=== PATIENT | female | born 1995 | race Caucasian/White ===

== ENCOUNTER 2016-05-28 18:13 | Emergency (ER) | payer BC, OTHER ==
[~2016-05-28] VITALS: Ht 160 cm; Wt 59.6 kg
[~2016-05-28 18:13] MED LIST: BCPILLS PO; IBUP-1050 PO
[2016-05-28 18:17] VITALS: TEMP 36.9; Ht 160 cm; Wt 59.6 kg
[2016-05-28] MEDS ORDERED: CALC500C3 PO (18:34)
[2016-05-28] MEDS ORDERED: MoRPHine SULFATE 4 MG/ML 1 ML CARP\\VIAL IV STA (18:47)
[2016-05-28] MEDS ORDERED: KETOROLAC TROMETHAMINE 30 MG/ML VIAL IV STA (18:47)
[2016-05-28] MEDS ORDERED: SODIUM CHLORIDE 0.9% 500ML 500 ML IV STA (18:47)
[2016-05-28 19:07] LABS: BASO % 0.2 %; BASO ABS # 0.02 K/uL (0-0.2); COMPLETE YES; EOS % 0.5 %; HEMATOCRIT 39.3 % (37-47); IG% 0.2 %; LYMPH % 38.1 %; MEAN CELL VOLUME 88.3 fL (80-100); MEAN CORPUSCULAR HEMOGLOBIN 31.2 pg (25-34); MEAN CORPUSCULAR HGB CONC 35.4 g/dl (32-36); MEAN PLATELET VOLUME 8.9 fL (7.4-10.4); PLATELET COUNT 371 K/uL (130-400); RED BLOOD COUNT 4.45 M/uL (4.2-5.4); WHITE BLOOD COUNT 8.67 K/uL (4.8-10.8)
[2016-05-28 19:22] LABS: BUN/CREATININE RATIO 8.8 (10-20); CALCIUM 9.5 mg/dl (8.5-10.1); CREATININE 0.75 mg/dl (0.60-1.20); POTASSIUM 3.5 mmol/L (3.5-5.1)
--- NOTE | 2016-05-28 19:36 | DIAGNOSTIC IMAGING REPORT ---
RIGHT RIBS UNILATERAL WITH PA CHEST CLINICAL HISTORY: Right rib pain. Coughing. COMPARISON STUDY: No previous studies for comparison. FINDINGS: The erect chest reveals no pneumothorax. There is no focal pulmonary consolidation. Multiple views of the right ribs reveal no acute fractures. IMPRESSION: No evidence of pneumothorax. No right-sided rib fractures are visualized. Electronically signed by: Brayan Anaya M.D. 05/28/2016 7:34 PM Dictated Date/Time: 05/28/2016 7:33 PM
[2016-05-28 21:00] VITALS: BP 130/92; PULSE 79; O2SAT 98
--- NOTE | 2016-05-28 22:59 | EMERGENCY ROOM VISIT NOTE ---
History Report prepared by Michelle: Roland Erickson Under the Supervision of: Dr. Dre Funes D.O. First contact with patient: 18:40 Chief Complaint: RIB PAIN Stated Complaint: PAIN IN RT RIBS & BACK History of Present Illness The patient is a 20 year old female who presents to the Emergency Room with complaints of persistent right rib pain that worsened after she sneezed 45 minutes ago. The patient notes that she has had a lingering pain for the past four days, but she presented to ED this evening after she sneezed because the pain became excruciating and she thought she felt something move or snap. She describes the discomfort as stabbing. Holding pressure relieves the pain somewhat. Breathing worsens the discomfort. Pt denies headache, change in vision , fevers, nausea, vomiting, diarrhea, pain with urination, melena, runny nose, sore throat, swelling of calves, abdominal pain, and rash. She also denies history of blood clots, recent travel, history of cancer, hemoptysis, recent surgeries, previous blood clots, falls or trauma. She denies any hypertension, hyperlipidemia, CAD or [place]. Source of History: patient Onset: 4 days ago Position: other (right ribs) Symptom Intensity: excruciating Quality: sharp, stabbing Timing: other (persistent) Modifying Factors (Worsening): breathing Modifying Factors (Relieving): other (holding pressure) Associated Symptoms: No abdominal pain, No diarrhea, No fevers, No headache , No melena, No nausea, No rash, No vomiting Note: Denies: change in vision, runny nose, sore throat, swelling of calves Review of Systems See HPI for pertinent positives & negatives. A total of 10 systems reviewed and were otherwise negative. Past Medical & Surgical Medical Problems: (1) Bronchitis (2) Contusion of rib (3) Contusion, arm, upper (4) No significant medical problems (5) Pneumonia Surgical Problems: (1) No significant past surgical history Family History Cancer Diabetes mellitus FHx: gallbladder disease Heart disease Hypertension Kidney disease Kidney stones Seizures Social History Smoking Status: Never Smoker Alcohol Use: none Drug Use: none Marital Status: single Housing Status: lives with family Occupation Status: employed, student Current/Historical Medications Scheduled Control Pills ( Control Pills), 1 TAB PO DAILY Calcium Carbonate (Tums), 3 TABS PO DIRECTED Ibuprofen (Advil), 400-600 MG PO Q6H Allergies Coded Allergies: No Known Allergies (Unverified , 05/28/16) Physical Exam Vital Signs Date Time Temp Pulse Resp B/P Pulse Ox O2 Delivery O2 Flow Rate FiO2 05/28/16 21:00 79 18 130/92 98 05/28/16 20:01 95 18 124/84 98 Room Air 05/28/16 18:17 36.9 110 20 153/94 97 Room Air Physical Exam GENERAL: sitting up in bed, holding her right chest wall EYE EXAM: normal conjunctiva, OROPHARYNX: no exudate, no erythema, lips, buccal mucosa, and tongue normal and mucous membranes are moist NECK: supple, no nuchal rigidity, no adenopathy, non-tender LUNGS: Clear to auscultation. Normal chest wall mechanics HEART: no murmurs, S1 normal and S2 normal.. tachycardic CHEST: acute reproducible tenderness under right breast, no erythema or bruising , skin intact. ABDOMEN: abdomen soft, non-tender, normo-active bowel sounds, no masses, no rebound or guarding. BACK: Back is symmetrical on inspection and there is no deformity, no midline tenderness, no CVA tenderness. SKIN: no rashes and no bruising UPPER EXTREMITIES: upper extremities are grossly normal. LOWER EXTREMITIES: No pitting edema. NEURO EXAM: Normal sensorium, cranial nerves II-XII grossly intact, normal speech, no gross weakness of arms, no gross weakness of legs. Gross sensation intact. Medical Decision & Procedures ER Provider Diagnostic Interpretation: Xray results per the radiologist and my interpretation. Other results have been interpreted by the radiologist and reviewed by me. RIGHT RIBS UNILATERAL WITH PA CHEST CLINICAL HISTORY: Right rib pain. Coughing. COMPARISON STUDY: No previous studies for comparison. FINDINGS: The erect chest reveals no pneumothorax. There is no focal pulmonary consolidation. Multiple views of the right ribs reveal no acute fractures. IMPRESSION: No evidence of pneumothorax. No right-sided rib fractures are visualized. Electronically signed by: Brayan Anaya M.D. 05/28/2016 7:34 PM Dictated Date/Time: 05/28/2016 7:33 PM Laboratory Results 05/28/16 18:55 Red Blood Count 4.45, Mean Corpuscular Volume 88.3, Mean Corpuscular Hemoglobin 31.2, Mean Corpuscular Hemoglobin Concent 35.4, Mean Platelet Volume 8.9, Neutrophils (%) (Auto) 50.0, Lymphocytes (%) (Auto) 38.1, Monocytes (%) (Auto) 11.0, Eosinophils (%) (Auto) 0.5, Basophils (%) (Auto) 0.2, Neutrophils # (Auto ) 4.34, Lymphocytes # (Auto) 3.30, Monocytes # (Auto) 0.95, Eosinophils # (Auto ) 0.04, Basophils # (Auto) 0.02 05/28/16 18:55 Test 05/28/16 18:55 White Blood Count 8.67 K/uL (4.8-10.8) Red Blood Count 4.45 M/uL (4.2-5.4) Hemoglobin 13.9 g/dL (12.0-16.0) Hematocrit 39.3 % (37-47) Mean Corpuscular Volume 88.3 fL (80-100) Mean Corpuscular Hemoglobin 31.2 pg (25-34) Mean Corpuscular Hemoglobin Concent 35.4 g/dl (32-36) Platelet Count 371 K/uL (130-400) Mean Platelet Volume 8.9 fL (7.4-10.4) Neutrophils (%) (Auto) 50.0 % Lymphocytes (%) (Auto) 38.1 % Monocytes (%) (Auto) 11.0 % Eosinophils (%) (Auto) 0.5 % Basophils (%) (Auto) 0.2 % Neutrophils # (Auto) 4.34 K/uL (1.4-6.5) Lymphocytes # (Auto) 3.30 K/uL (1.2-3.4) Monocytes # (Auto) 0.95 K/uL (0.11-0.59) Eosinophils # (Auto) 0.04 K/uL (0-0.5) Basophils # (Auto) 0.02 K/uL (0-0.2) RDW Standard Deviation 41.9 fL (36.4-46.3) RDW Coefficient of Variation 12.9 % (11.5-14.5) Immature Granulocyte % (Auto) 0.2 % Immature Granulocyte # (Auto) 0.02 K/uL (0.00-0.02) D-Dimer 330 ug/L FEU (0-500) Anion Gap 11.0 mmol/L (3-11) Est Creatinine Clear Calc Drug Dose 99.8 ml/min Estimated GFR () 133.9 Estimated GFR (Non- 115.6 BUN/Creatinine Ratio 8.8 (10-20) Calcium Level 9.5 mg/dl (8.5-10.1) Laboratory results per my review. Medications Administered Medications (Trade) Dose Ordered Sig/Kar Route Start Time Stop Time Status Last Admin Dose Admin Sodium Chloride (Nss 500ml) 500 ml @ 999 mls/hr Q31M STAT IV 05/28/16 18:47 05/28/16 19:17 DC 05/28/16 19:00 999 MLS/HR Ketorolac Tromethamine (Toradol Inj) 30 mg NOW STAT IV 05/28/16 18:47 05/28/16 18:49 DC 05/28/16 19:00 30 MG Morphine Sulfate (MoRPHine SULFATE INJ) 4 mg NOW STAT IV 05/28/16 18:47 05/28/16 18:49 DC 05/28/16 18:59 4 MG ED Course ED COURSE: Vital signs were reviewed and showed tachycardic. The patients medical record was reviewed The above diagnostic studies were performed and reviewed. ED treatments and interventions as stated above. 1837: The patient was evaluated in room C9. A complete history and physical examination was performed. 1846: Ordered Morphine Sulfate 4 mg IV, Toradol 30 mg IV, NSS 500 ml @ 999 mls/ hr IV. 1941: Upon reevaluation, the patient is resting.I discussed my findings with the patient and she understands and agrees with the treatment plan. Based on the patients age, coexisting illnesses, exam and lab findings the decision to treat as an outpatient was made. The patient remained stable while under my care. The patient appeared well at the time of discharge. Medical Decision Differential diagnoses includes but is not limited to acute coronary syndrome, myocardial infarction, pericarditis, pulmonary embolus, aortic dissection, pneumonia, pneumothorax, musculoskeletal, shingles, esophageal. Patient is a 20-year-old female who presents the ER severe right-sided chest pain which is clearly reproducible on exam. She has point tenderness under her right breast. No signs of trauma or erythema. Patient is given IV Toradol morphine. Chest x-ray shows no rib fractures. CBC along with BMP was unremarkable. D-dimer was negative. She is a low risk for PEs. She is no cardiac risk factors. This is clearly reproducible and consequently I do not believe it to be cardiac. With her negative d-dimer I did not pursue this any further. Pain is improved with splinting and consequently I question whether this is a hairline rib fracture/contusion/muscle sprain. Discussed with Pt concerning signs and symptoms to watch out for. Pt was instructed to follow up with their PCP and discussed with the patient their option to return to the ED at anytime for persistent or worsening symptoms. The appropriate anticipatory guidance and out-patient management, including indications for return to the emergency department, were explained at length to the patient and understood. Impression Primary Impression: Right-sided chest wall pain Scribe Attestation The scribe's documentation has been prepared under my direction and personally reviewed by me in its entirety. I confirm that the note above accurately reflects all work, treatment, procedures, and medical decision making performed by me. Departure Information Dispostion Home / Self-Care Referrals No Doctor, Assigned (PCP) Forms HOME CARE DOCUMENTATION FORM, IMPORTANT VISIT INFORMATION, WORK / SCHOOL INSTRUCTIONS Patient Instructions My [facility] Additional Instructions Please follow up with your primary care doctor with in the next 24 hours. Any worsening of your symptoms, please return to the ED immediately. This includes any fevers greater than 100.4, worsening pain, passing out, feel blood, or any other concerning signs or symptoms from your standpoint. Please take Tylenol or Motrin as needed for pain.
== END 2016-05-28 21:00 | disposition home or self-care (01) ==
LOC: C.EDB 18:14 → C.EDC 21:00
DX: R07.89 Other chest pain (principal); Z83.3 Family history of diabetes mellitus; Z82.49 Family history of ischemic heart disease and other diseases of the circulatory system; Z84.1 Family history of disorders of kidney and ureter

== ENCOUNTER 2017-04-01 17:27 | Emergency (ER) | payer BC, OTHER ==
[~2017-04-01] VITALS: Ht 157.5 cm; Wt 62.3 kg
[~2017-04-01 17:27] MED LIST changes: +CALC500C3 PO
[2017-04-01 17:28] VITALS: TEMP 36.9; Ht 157.5 cm; Wt 62.3 kg
[2017-04-01] MEDS ORDERED: ACETAMINOPHEN 325 MG TAB PO STA (17:44)
[2017-04-01] MEDS ORDERED: LACTATED RINGER'S 1000ML 1,000 ML IV STA (17:44)
--- NOTE | 2017-04-01 17:48 | EMERGENCY ROOM VISIT NOTE ---
History Report prepared by Michelle: Aleah Canchola Under the Supervision of: Dr. Timur Hicks M.D. First contact with patient: 17:34 Chief Complaint: PELVIC PAIN Stated Complaint: PELVIC PAIN, BACK/NECK PAIN History of Present Illness The patient is a 21 year old female who presents to the Emergency Room with complaints of intermittent pelvic pain beginning this morning. The patient notes lower back pain, neck pain, and hot and cold flashes. The patient states that she took a test 2 days ago. The patient notes some clear vaginal discharge which is not normal for her. She denies any fever, or urinary burning. The patient states she is a little sick right now with a cough and congestion. She states that if she did not have a positive test she probably wouldn't of come into the ED. The patient is not on control. The patient's last period was on February 28 and she states she is six days late for her period. The patient has a history of ovarian cysts. Source of History: patient Onset: this morning Position: pelvis Timing: intermittent Associated Symptoms: + cough, + neck pain, + back pain, No fevers, No urinary symptoms Note: The patient notes clear vaginal discharge. Review of Systems See HPI for pertinent positives and negatives. A total of ten systems were reviewed and were otherwise negative. Past Medical & Surgical Medical Problems: (1) Bronchitis (2) Contusion of rib (3) Contusion, arm, upper (4) No significant medical problems (5) Pneumonia Surgical Problems: (1) No significant past surgical history Family History Cancer Diabetes mellitus FHx: gallbladder disease Heart disease Hypertension Kidney disease Kidney stones Seizures Social History Smoking Status: Never Smoker Alcohol Use: none Drug Use: none Marital Status: single Housing Status: lives with family Occupation Status: employed, student Current/Historical Medications No Active Prescriptions or Reported Meds Allergies Coded Allergies: No Known Allergies (Unverified , 05/28/16) Physical Exam Vital Signs Date Time Temp Pulse Resp B/P (MAP) Pulse Ox O2 Delivery O2 Flow Rate FiO2 04/01/17 21:53 78 20 111/78 98 04/01/17 20:12 101 18 113/63 98 Room Air 04/01/17 17:28 36.9 108 20 122/86 97 Room Air Physical Exam GENERAL: Awake, alert, well-appearing, in no distress HENT: Normocephalic, atraumatic. Oropharynx unremarkable. EYES: Normal conjunctiva. Sclera non-icteric. NECK: Supple. No nuchal rigidity. FROM. No JVD. RESPIRATORY: Clear to auscultation. CARDIAC: Regular rate, normal rhythm. Extremities warm and well perfused. Pulses equal. ABDOMEN: Mild left lower quadrant tenderness, no peritoneal signs. Soft, non- distended. No rebound or guarding. No masses. RECTAL: Deferred. MUSCULOSKELETAL: Chest examination reveals no tenderness. The back is symmetrical on inspection without obvious abnormality. There is no CVA tenderness to palpation. No joint edema. LOWER EXTREMITIES: Calves are equal size bilaterally and non-tender. No edema. No discoloration. NEURO: Normal sensorium. No sensory or motor deficits noted. SKIN: No rash or jaundice noted. Medical Decision & Procedures ER Provider Diagnostic Interpretation: Radiology results as stated below per my review and radiologist interpretation: ultrasound <14 WKS SINGLE COMPARISON STUDY: Abdomen and pelvis CT 01/17/2016. Pelvic ultrasound 01/16/2016. FINDINGS: Transabdominal and transvaginal scanning of the pelvis was performed. The uterus measures 8.6 x 5.8 x 4.5 cm. The endometrium slightly heterogeneous and measures up to 1.2 cm in thickness. Within the center of the endometrial fundus there is a 9 x 3 mm cystic focus. This favors a small gestational sac. There may be a tiny yolk sac which measures 2 mm. No pole identified at this time. These findings favor a 5 week intrauterine gestation. No significant subchorionic hematoma. Trace pelvic fluid. Thick-walled complex cyst within the right ovary which measures 2.5 cm. This favors a corpus luteum. Normal left ovary. Normal color flow within the bilateral ovaries. IMPRESSION: 1. A 9 x 3 mm cystic focus within the endometrium which favors a small intrauterine gestational sac. There may be a tiny yolk sac which measures 2 mm. No pole identified at this time. This favors a 5 week intrauterine gestation. Follow-up beta-hCG and pelvic ultrasound in 1 week is recommended to ensure viability. 2. Complex 2.5 cm right ovarian cyst. This favors a corpus luteum. 3. Normal left ovary. Electronically signed by: Carlos Dunn M.D. Laboratory Results 04/01/17 17:48 Red Blood Count 4.67, Mean Corpuscular Volume 88.9, Mean Corpuscular Hemoglobin 30.4, Mean Corpuscular Hemoglobin Concent 34.2, Mean Platelet Volume 9.1, Neutrophils (%) (Auto) 67.6, Lymphocytes (%) (Auto) 23.3, Monocytes (%) (Auto) 8.1, Eosinophils (%) (Auto) 0.5, Basophils (%) (Auto) 0.2, Neutrophils # (Auto) 8.81, Lymphocytes # (Auto) 3.03, Monocytes # (Auto) 1.06, Eosinophils # (Auto) 0.06, Basophils # (Auto) 0.03 04/01/17 17:48 Test 04/01/17 17:48 04/01/17 17:50 White Blood Count 13.03 K/uL (4.8-10.8) Red Blood Count 4.67 M/uL (4.2-5.4) Hemoglobin 14.2 g/dL (12.0-16.0) Hematocrit 41.5 % (37-47) Mean Corpuscular Volume 88.9 fL (80-100) Mean Corpuscular Hemoglobin 30.4 pg (25-34) Mean Corpuscular Hemoglobin Concent 34.2 g/dl (32-36) Platelet Count 362 K/uL (130-400) Mean Platelet Volume 9.1 fL (7.4-10.4) Neutrophils (%) (Auto) 67.6 % Lymphocytes (%) (Auto) 23.3 % Monocytes (%) (Auto) 8.1 % Eosinophils (%) (Auto) 0.5 % Basophils (%) (Auto) 0.2 % Neutrophils # (Auto) 8.81 K/uL (1.4-6.5) Lymphocytes # (Auto) 3.03 K/uL (1.2-3.4) Monocytes # (Auto) 1.06 K/uL (0.11-0.59) Eosinophils # (Auto) 0.06 K/uL (0-0.5) Basophils # (Auto) 0.03 K/uL (0-0.2) RDW Standard Deviation 41.7 fL (36.4-46.3) RDW Coefficient of Variation 12.9 % (11.5-14.5) Immature Granulocyte % (Auto) 0.3 % Immature Granulocyte # (Auto) 0.04 K/uL (0.00-0.02) Anion Gap 10.0 mmol/L (3-11) Est Creatinine Clear Calc Drug Dose 109.7 ml/min Estimated GFR () 142.1 Estimated GFR (Non- 122.6 BUN/Creatinine Ratio 11.3 (10-20) Calcium Level 9.2 mg/dl (8.5-10.1) Total Bilirubin 0.4 mg/dl (0.2-1) Direct Bilirubin < 0.1 mg/dl (0-0.2) Aspartate Amino Transf (AST/SGOT) 17 U/L (15-37) Alanine Aminotransferase (ALT/SGPT) 25 U/L (12-78) Alkaline Phosphatase 76 U/L (45-117) Total Protein 7.8 gm/dl (6.4-8.2) Albumin 3.6 gm/dl (3.4-5.0) Lipase 195 U/L (73-393) Human Chorionic Gonadotropin, Quant 3555 mIU/mL Urine Color YELLOW Urine Appearance CLEAR (CLEAR) Urine pH 6.5 (4.5-7.5) Urine Specific [place] 1.010 (1.000-1.030) Urine Protein NEG (NEG) Urine Glucose (UA) NEG (NEG) Urine Ketones NEG (NEG) Urine Occult Blood NEG (NEG) Urine Nitrite NEG (NEG) Urine Bilirubin NEG (NEG) Urine Urobilinogen NEG (NEG) Urine Leukocyte Esterase NEG (NEG) Laboratory results reviewed by me Medications Administered Medications (Trade) Dose Ordered Sig/Kar Route Start Time Stop Time Status Last Admin Dose Admin Lactated Ringer's 1,000 ml @ 999 mls/hr Q1H1M STAT IV 04/01/17 17:44 04/01/17 18:44 DC 04/01/17 18:27 999 MLS/HR Acetaminophen (Tylenol Tab) 650 mg NOW STAT PO 04/01/17 17:44 04/01/17 17:45 DC 04/01/17 18:27 650 MG ED Course 1735: The patient was evaluated in room B11B. A complete history and physical exam was performed. 2207: I updated the patient on her test results she will follow up with OBGYN. 2235: I reevaluated the patient. Discussed results and discharge instructions: She verbalized understanding and agreement. The patient is ready for discharge. Medical Decision I reviewed the patient's past medical history, medications, and the nursing notes as described above. Differential Diagnoses include: , ectopic , ovarian torsion, UTI, pyelonephritis, ureteral stone, hemorrhagic cyst. The patient is a 21-year-old woman who presents to emergency Department with lower abdominal pain and back aches for the past several days in the setting of a positive home test after being 6 days late for her menstrual cycle per history of present illness. The patient is well-appearing, afebrile with stable vital signs. Mild left lower quadrant discomfort but otherwise no peritoneal signs. WBC 13 nonspecific, hcg 3500. Labs otherwise unremarkable including negative UA. TVUS demonstrates likely early IUP. Patient prefers to defer pelvic exam for when she follows up with her CREDIT REVIEW ANALYST. Findings and plan for follow-up reviewed with patient. Patient agreeable and d/c'd per discharge instructions. Blood Pressure Screening Patient's blood pressure: Normal blood pressure Impression Primary Impression: Intrauterine Scribe Attestation The scribe's documentation has been prepared under my direction and personally reviewed by me in its entirety. I confirm that the note above accurately reflects all work, treatment, procedures, and medical decision making performed by me. Departure Information Dispostion Home / Self-Care Prescriptions No Active Prescriptions or Reported Meds Referrals No Doctor, Assigned (PCP) Patient Instructions ED Preg Established Normal Sxs, My [facility] Additional Instructions Please follow up with your CREDIT REVIEW ANALYST within the next week for re-evaluation. You were found to have a likely intrauterine . Otherwise, your exam, ultrasound, and lab results did not show signs of an emergent condition at this time. Return to the emergency department for worsening symptoms as described in the accompanying instructions. ultrasound <14 WKS SINGLE CLINICAL HISTORY: +home preg test, LLQ abd pain COMPARISON STUDY: Abdomen and pelvis CT 01/17/2016. Pelvic ultrasound 01/16/2016. FINDINGS: Transabdominal and transvaginal scanning of the pelvis was performed. The uterus measures 8.6 x 5.8 x 4.5 cm. The endometrium slightly heterogeneous and measures up to 1.2 cm in thickness. Within the center of the endometrial fundus there is a 9 x 3 mm cystic focus. This favors a small gestational sac. There may be a tiny yolk sac which measures 2 mm. No pole identified at this time. These findings favor a 5 week intrauterine gestation. No significant subchorionic hematoma. Trace pelvic fluid. Thick-walled complex cyst within the right ovary which measures 2.5 cm. This favors a corpus luteum. Normal left ovary. Normal color flow within the bilateral ovaries.
[2017-04-01 17:57] LABS: BASO % 0.2 %; BASO ABS # 0.03 K/uL (0-0.2); COMPLETE YES; EOS % 0.5 %; HEMATOCRIT 41.5 % (37-47); IG% 0.3 %; LYMPH % 23.3 %; LYMPH ABS # 3.03 K/uL (1.2-3.4); MEAN CELL VOLUME 88.9 fL (80-100); MEAN CORPUSCULAR HEMOGLOBIN 30.4 pg (25-34); MEAN CORPUSCULAR HGB CONC 34.2 g/dl (32-36); MEAN PLATELET VOLUME 9.1 fL (7.4-10.4); MONO % 8.1 %; NEUT % 67.6 %; PLATELET COUNT 362 K/uL (130-400); RED BLOOD COUNT 4.67 M/uL (4.2-5.4); WHITE BLOOD COUNT 13.03 K/uL (4.8-10.8)
[2017-04-01 18:12] LABS: URINE APPEARANCE CLEAR (CLEAR); URINE BILIRUBIN NEG (NEG); URINE COLOR YELLOW; URINE NITRITE NEG (NEG); URINE PH 6.5 (4.5-7.5); UROBILINOGEN NEG (NEG); ZZUR CULT IF INDIC CLEAN CATCH NO
[2017-04-01 18:15] LABS: ALT/SGPT 25 U/L (12-78); BLOOD UREA NITROGEN 8 mg/dl (7-18); BUN/CREATININE RATIO 11.3 (10-20); CALCIUM 9.2 mg/dl (8.5-10.1); CARBON DIOXIDE 25 mmol/L (21-32); CHLORIDE 103 mmol/L (98-107); CREATININE 0.71 mg/dl (0.60-1.20); GLUCOSE 95 mg/dl (70-99); POTASSIUM 3.2 mmol/L (3.5-5.1); SODIUM 138 mmol/L (136-145)
[2017-04-01 18:17] LABS: ALKALINE PHOSPHATASE 76 U/L (45-117); AST/SGOT 17 U/L (15-37)
[2017-04-01 18:17] LABS: MANUAL MICROSCOPIC REQUIRED? NO; REVIEW REQ? NO
--- NOTE | 2017-04-01 20:39 | DIAGNOSTIC IMAGING REPORT ---
ultrasound <14 WKS SINGLE CLINICAL HISTORY: +home preg test, LLQ abd pain COMPARISON STUDY: Abdomen and pelvis CT 01/17/2016. Pelvic ultrasound 01/16/2016. FINDINGS: Transabdominal and transvaginal scanning of the pelvis was performed. The uterus measures 8.6 x 5.8 x 4.5 cm. The endometrium slightly heterogeneous and measures up to 1.2 cm in thickness. Within the center of the endometrial fundus there is a 9 x 3 mm cystic focus. This favors a small gestational sac. There may be a tiny yolk sac which measures 2 mm. No pole identified at this time. These findings favor a 5 week intrauterine gestation. No significant subchorionic hematoma. Trace pelvic fluid. Thick-walled complex cyst within the right ovary which measures 2.5 cm. This favors a corpus luteum. Normal left ovary. Normal color flow within the bilateral ovaries. IMPRESSION: 1. A 9 x 3 mm cystic focus within the endometrium which favors a small intrauterine gestational sac. There may be a tiny yolk sac which measures 2 mm. No pole identified at this time. This favors a 5 week intrauterine gestation. Follow-up beta-hCG and pelvic ultrasound in 1 week is recommended to ensure viability. 2. Complex 2.5 cm right ovarian cyst. This favors a corpus luteum. 3. Normal left ovary. Electronically signed by: Carlos Dunn M.D. 04/01/2017 8:38 PM Dictated Date/Time: 04/01/2017 8:33 PM
[2017-04-01 21:53] VITALS: BP 111/78; PULSE 78; O2SAT 98
== END 2017-04-01 21:55 | disposition home or self-care (01) ==
LOC: C.EDB 17:28
DX: Z33.1 Pregnant state, incidental (principal); R10.2 Pelvic and perineal pain; N83.201 Unspecified ovarian cyst, right side; Z83.3 Family history of diabetes mellitus; Z82.49 Family history of ischemic heart disease and other diseases of the circulatory system; Z82.0 Family history of epilepsy and other diseases of the nervous system; Z84.1 Family history of disorders of kidney and ureter

== ENCOUNTER → 2017-04-27 | Outpatient (CLI) | payer BC ==
[2017-04-27 16:20] LABS: BASO % 0.2 %; BASO ABS # 0.02 K/uL (0-0.2); COMPLETE YES; EOS % 0.3 %; HEMATOCRIT 37.4 % (37-47); IG% 0.3 %; LYMPH % 22.7 %; LYMPH ABS # 2.79 K/uL (1.2-3.4); MEAN CELL VOLUME 88.8 fL (80-100); MEAN CORPUSCULAR HEMOGLOBIN 30.6 pg (25-34); MEAN CORPUSCULAR HGB CONC 34.5 g/dl (32-36); MEAN PLATELET VOLUME 9.4 fL (7.4-10.4); MONO % 7.6 %; NEUT % 68.9 %; PLATELET COUNT 349 K/uL (130-400); RED BLOOD COUNT 4.21 M/uL (4.2-5.4); WHITE BLOOD COUNT 12.31 K/uL (4.8-10.8)
[2017-04-27 18:19] LABS: URINE APPEARANCE TURBID (CLEAR); URINE BILIRUBIN NEG (NEG); URINE COLOR YELLOW; URINE NITRITE NEG (NEG); URINE PH 8.5 (4.5-7.5); URINE SPECIFIC GRAVITY 1.016 (1.000-1.030); UROBILINOGEN NEG (NEG)
[2017-04-27 18:20] LABS: MANUAL MICROSCOPIC REQUIRED? NO; REVIEW REQ? NO
[2017-05-01 07:51] LABS: CHLAMYDIA TRACH RNA*** NOT DETECTED (NOT DETECTED); GC (NEIS GONORRHOEAE)RNA** NOT DETECTED (NOT DETECTED)
== END | disposition home or self-care (01) ==
LOC: C.LAB1850 15:10
PROVIDERS: ATTEND Obstetrics & Gynecology
DX: Z34.01 Encounter for supervision of normal first pregnancy, first trimester (principal); Z3A.00 Weeks of gestation of pregnancy not specified

== ENCOUNTER → 2017-06-18 | Outpatient (CLI) | payer BC | END | disposition home or self-care (01) | LOC: C.LAB1850 15:00 | PROVIDERS: ATTEND Obstetrics & Gynecology | DX: Z34.02 Encounter for supervision of normal first pregnancy, second trimester (principal) ==

== ENCOUNTER 2017-07-27 16:46 | Emergency (ER) | payer BC ==
[~2017-07-27] VITALS: Ht 157.5 cm; Wt 70.0 kg
[2017-07-27 16:49] VITALS: TEMP 36.7; Ht 157.5 cm; Wt 70.0 kg
[2017-07-27] MEDS ORDERED: SODIUM CHLORIDE 0.9% 1000ML 1,000 ML IV STA ×2 (17:32→19:09)
--- NOTE | 2017-07-27 17:49 | EMERGENCY ROOM VISIT NOTE ---
History Report prepared by Michelle: Jose Alfredo Mtz Under the Supervision of: Dr. Swapnil Lowe M.D. First contact with patient: 17:25 Chief Complaint: DIZZY Stated Complaint: DIZZINESS,SOB,BLURRED VISION,TINGLING IN HANDS Nursing Triage Summary: pt to the ED with c/o feeling dizzy and near syncope today and like her heart is fluttering pt is 22 wks preg no vag bleeding + movements History of Present Illness The patient is a 21 year old female who presents to the Emergency Room with complaints of dizziness and near syncope that began prior to arrival. The patient was in class when she felt these symptoms and noted that her vision became blurry. In the last week, she states that she has had intermittent right lower abdominal cramping pain and SOB for the past 1 week that worsens with movement. She reports vaginal discharge, urinary burning, and back pain. She reports nausea, vomiting (1 episode today), headache, and sick contacts at home. She states that she is 22 weeks and her recent ultrasound was 2 weeks ago and showed flickering movements. She denies ankle swelling, fevers, vaginal bleeding, and a history of blood clots. Of note, Dr. Snell is her doctor who she follows up regularly. 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 Patient denies ankle swelling and vaginal bleeding. Review of Systems See HPI for pertinent positives & negatives. A total of 10 systems reviewed and were otherwise negative. Past Medical & Surgical Medical Problems: (1) Bronchitis (2) Contusion of rib (3) Contusion, arm, upper (4) No significant medical problems (5) Pneumonia Surgical Problems: (1) No significant past surgical history Family History Cancer Diabetes mellitus FHx: gallbladder disease Heart disease Hypertension Kidney disease Kidney stones Seizures Social History Smoking Status: Never Smoker Alcohol Use: none Drug Use: none Marital Status: single Housing Status: lives with family Occupation Status: employed, student Current/Historical Medications Scheduled Oseltamivir (Tamiflu), 75 MG PO BID Allergies Coded Allergies: No Known Allergies (Unverified , 05/28/16) Physical Exam Vital Signs Date Time Temp Pulse Resp B/P (MAP) Pulse Ox O2 Delivery O2 Flow Rate FiO2 07/27/17 20:02 82 20 121/78 100 07/27/17 19:01 83 124/75 100 Room Air 07/27/17 18:50 72 20 140/85 98 Room Air 07/27/17 17:36 98 07/27/17 17:26 120 153/96 88 130/89 128 133/102 07/27/17 16:49 36.7 110 18 145/95 98 Physical Exam GENERAL: Patient is anxious appearing and in mild distress. EYES: No scleral icterus, unremarkable pupils. ENT: Mildly dry mucous membranes, no nasal congestion. NECK: No masses appreciated, no meningismus, trachea is midline. RESPIRATORY: No dyspnea. Clear to auscultation and equal bilaterally. No wheeze , no rhonchi. CARDIOVASCULAR: Mildly tachycardiac. Regular rhythm. No murmurs, rubs, gallops appreciated. GASTROINTESTINAL: Large abdominal fundus consistent with dates. Abdomen soft, nontender, no peritonitis. Bowel sounds positive. No masses appreciated. BACK: No midline tenderness, no CVA tenderness EXTREMITIES: Normal motion all extremities, no cyanosis, no edema. NEUROLOGIC: Alert and oriented, no acute motor or sensory deficits, no focal weakness, cranial nerves grossly intact. SKIN: No rash, no jaundice, no diaphoresis. Medical Decision & Procedures ER Provider Diagnostic Interpretation: Radiology results and stated below per my review and radiologist interpretation: (CHEST FOR PE) ANGIO WITH CLINICAL HISTORY: 21 years-old Female presenting with ^CHEST PAIN--IF ABLE PLEASE EVALUATE THORACIC AORTA WELL. TECHNIQUE: Multidetector CT angiography of the chest was performed after administration of intravenous contrast. 3-D volumetric and/or maximum intensity projection (MIP) images were subsequently reconstructed for review. IV contrast: Optiray 320. A dose lowering technique was used consistent with the principles of ALARA (as low as reasonably achievable). COMPARISON: Chest x-ray from 2015. CT DOSE (mGy.cm): The estimated cumulative dose is 519.83 mGy.cm. FINDINGS: Therapist Occupational topogram: Unremarkable. Pulmonary vasculature: The study is suboptimal for the assessment of the pulmonary vascular tree secondary to timing of the contrast bolus and respiratory motion artifact. Allowing for limited image quality, no central filling defect to suggest pulmonary embolus. Main pulmonary artery is not enlarged. No flattening of the interventricular septum. No intracardiac filling defect. No reflux of contrast into the hepatic veins. Remaining chest: On soft tissue windows, normal thyroid and thoracic inlet. No axillary, supraclavicular, hilar, or mediastinal lymphadenopathy. Normal aorta. Normal heart size. No pericardial or pleural effusion. Upper abdomen normal. On lung windows, minimal dependent changes likely atelectasis. No other focal nodule or infiltrate. Airways patent. On bone windows, normal osseous structures. IMPRESSION: 1. Allowing for suboptimal image quality, no evidence of pulmonary embolus. No acute intrathoracic pathology. Electronically signed by: Jeancarlos Frank M.D. 07/27/2017 7:40 PM Dictated Date/Time: 07/27/2017 7:36 PM Laboratory Results 07/27/17 17:45 Red Blood Count 3.81, Mean Corpuscular Volume 90.3, Mean Corpuscular Hemoglobin 31.5, Mean Corpuscular Hemoglobin Concent 34.9, Mean Platelet Volume 9.1, Neutrophils (%) (Auto) 73.3, Lymphocytes (%) (Auto) 15.8, Monocytes (%) (Auto) 9.9, Eosinophils (%) (Auto) 0.3, Basophils (%) (Auto) 0.1, Neutrophils # (Auto) 10.30, Lymphocytes # (Auto) 2.22, Monocytes # (Auto) 1.39, Eosinophils # (Auto) 0.04, Basophils # (Auto) 0.01 07/27/17 17:45 Test 07/27/17 17:45 07/27/17 18:35 White Blood Count 14.04 K/uL (4.8-10.8) Red Blood Count 3.81 M/uL (4.2-5.4) Hemoglobin 12.0 g/dL (12.0-16.0) Hematocrit 34.4 % (37-47) Mean Corpuscular Volume 90.3 fL (80-100) Mean Corpuscular Hemoglobin 31.5 pg (25-34) Mean Corpuscular Hemoglobin Concent 34.9 g/dl (32-36) Platelet Count 300 K/uL (130-400) Mean Platelet Volume 9.1 fL (7.4-10.4) Neutrophils (%) (Auto) 73.3 % Lymphocytes (%) (Auto) 15.8 % Monocytes (%) (Auto) 9.9 % Eosinophils (%) (Auto) 0.3 % Basophils (%) (Auto) 0.1 % Neutrophils # (Auto) 10.30 K/uL (1.4-6.5) Lymphocytes # (Auto) 2.22 K/uL (1.2-3.4) Monocytes # (Auto) 1.39 K/uL (0.11-0.59) Eosinophils # (Auto) 0.04 K/uL (0-0.5) Basophils # (Auto) 0.01 K/uL (0-0.2) RDW Standard Deviation 47.3 fL (36.4-46.3) RDW Coefficient of Variation 14.4 % (11.5-14.5) Immature Granulocyte % (Auto) 0.6 % Immature Granulocyte # (Auto) 0.08 K/uL (0.00-0.02) D-Dimer 1150 ug/L FEU (0-500) Anion Gap 9.0 mmol/L (3-11) Est Creatinine Clear Calc Drug Dose 141.8 ml/min Estimated GFR () > 150.0 Estimated GFR (Non- 132.7 BUN/Creatinine Ratio 11.7 (10-20) Calcium Level 8.8 mg/dl (8.5-10.1) Total Bilirubin 0.3 mg/dl (0.2-1) Direct Bilirubin < 0.1 mg/dl (0-0.2) Aspartate Amino Transf (AST/SGOT) 10 U/L (15-37) Alanine Aminotransferase (ALT/SGPT) 16 U/L (12-78) Alkaline Phosphatase 76 U/L (45-117) Troponin I < 0.015 ng/ml (0-0.045) Total Protein 7.2 gm/dl (6.4-8.2) Albumin 2.7 gm/dl (3.4-5.0) Urine Color YELLOW Urine Appearance TURBID (CLEAR) Urine pH 8.5 (4.5-7.5) Urine Specific [place] 1.013 (1.000-1.030) Urine Protein NEG (NEG) Urine Glucose (UA) NEG (NEG) Urine Ketones NEG (NEG) Urine Occult Blood NEG (NEG) Urine Nitrite NEG (NEG) Urine Bilirubin NEG (NEG) Urine Urobilinogen NEG (NEG) Urine Leukocyte Esterase TRACE (NEG) Urine WBC (Auto) 1-5 /hpf (0-5) Urine RBC (Auto) 0-4 /hpf (0-4) Urine Hyaline Casts (Auto) 1-5 /lpf (0-5) Urine Epithelial Cells (Auto) >30 /lpf (0-5) Urine Bacteria (Auto) 1+ (NEG) Medications Administered Medications (Trade) Dose Ordered Sig/Kar Route Start Time Stop Time Status Last Admin Dose Admin Sodium Chloride 1,000 ml @ 999 mls/hr Q1H1M STAT IV 07/27/17 17:32 07/27/17 18:32 DC 07/27/17 17:32 999 MLS/HR Sodium Chloride 1,000 ml @ 999 mls/hr Q1H1M STAT IV 07/27/17 19:09 07/27/17 20:09 DC 07/27/17 19:09 999 MLS/HR ECG Per My Interpretation Indication: SOB/dyspnea Rate (beats per minute): 90 Rhythm: normal sinus Findings: no acute ischemic change, no ectopy, other (QTc of 450; nonspecific anterior / septal T wave inversion/flattening) ED Course 1724: The patient was evaluated in room C8. A complete history and physical exam was performed. 1837: I checked on the patient and a bedside ultrasound was performed which revels normal intrauterine with anterior placenta. Head down. heart at 158. Positive movement. Discussed D dimer with the patient. She would like to hold off until urine comes back and discuses with Dr. Snell first. 1907: After discussion with mother and patient, as well as brief discussion with Dr. Snell, we will get a CT scan of chest to rule out PE. 1950: I checked on the patient and she is feeling well. She would like to go home. She states that she has an increasing runny nose. She denies fevers. She will follow up with her OBGYN. 1999: Reevaluated the patient. Discussed results and discharge instructions: She verbalized understanding and agreement. The patient is ready for discharge. Medical Decision 21 yr old female with host of symptoms at 22 wks . Lightheaded, pre- syncopal with chest tightness. She is tachy on arrival but also dehydrated. A bit Hypertensive but after relaxing BP much improved and normalized. She has elevated dimer. Given her reported symptoms, her tachycardia on arrival, and an elevated dimer I felt CT PE indicated (did discuss with Dr Harry who agreed) . CT PE unremarkable fortunately. Patient feeling much better. Did have some runny nose developing but no signficaitn flu like symptoms, however with it still flu season, it being the weekend and being discussed empiric Tamiflu if she develops fevers/body aches. Patient and mother (RN) comfortable with this plan. Discharged to home feeling well and in no distress. Medication Reconcilliation Current Medication List: was personally reviewed by me Blood Pressure Screening Patient's blood pressure: Elevated blood pressure Blood pressure disposition: Elevated BP felt to be situational Impression Primary Impression: Pre-syncope Additional Impressions: Dehydration Elevated d-dimer Fatigue Scribe Attestation The scribe's documentation has been prepared under my direction and personally reviewed by me in its entirety. I confirm that the note above accurately reflects all work, treatment, procedures, and medical decision making performed by me. Departure Information Dispostion Home / Self-Care Prescriptions Oseltamivir (Tamiflu) 75 Mg Cap 75 MG PO BID, #10 CAP Prov: Swapnil Lowe M.D. 07/27/17 Referrals Jeancarlos Salazar M.D. (PCP) Patient Instructions My [facility] Additional Instructions Rest and keep well hydrated. Avoid exertion over next 48 hours and eat a well balanced meal. Return if worsening symptoms, pain, passing out or other concerns. If you develop fevers, body aches, and/or cough you may wish to start anti-flu medication, Tamiflu, as you are , or discuss this as soon as possible with OB. Problem Qualifiers
[2017-07-27 18:07] LABS: BASO % 0.1 %; BASO ABS # 0.01 K/uL (0-0.2); EOS % 0.3 %; EOS ABS # 0.04 K/uL (0-0.5); HEMATOCRIT 34.4 % (37-47); IG# 0.08 K/uL (0.00-0.02); LYMPH % 15.8 %; LYMPH ABS # 2.22 K/uL (1.2-3.4); MEAN CELL VOLUME 90.3 fL (80-100); MEAN CORPUSCULAR HEMOGLOBIN 31.5 pg (25-34); MEAN CORPUSCULAR HGB CONC 34.9 g/dl (32-36); MEAN PLATELET VOLUME 9.1 fL (7.4-10.4); MONO % 9.9 %; MONO ABS # 1.39 K/uL (0.11-0.59); NEUT % 73.3 %; PLATELET COUNT 300 K/uL (130-400); RED CELL DISTRIBUTION WIDTH CV 14.4 % (11.5-14.5); RED CELL DISTRIBUTION WIDTH SD 47.3 fL (36.4-46.3); WHITE BLOOD COUNT 14.04 K/uL (4.8-10.8)
[2017-07-27 18:27] LABS: ALBUMIN 2.7 gm/dl (3.4-5.0); ALT/SGPT 16 U/L (12-78); AST/SGOT 10 U/L (15-37); BLOOD UREA NITROGEN 7 mg/dl (7-18); CALCIUM 8.8 mg/dl (8.5-10.1); CARBON DIOXIDE 23 mmol/L (21-32); CREATININE 0.58 mg/dl (0.60-1.20); GLUCOSE 87 mg/dl (70-99); POTASSIUM 3.2 mmol/L (3.5-5.1); SODIUM 136 mmol/L (136-145)
[2017-07-27 18:32] LABS: ALKALINE PHOSPHATASE 76 U/L (45-117); TOTAL PROTEIN 7.2 gm/dl (6.4-8.2)
[2017-07-27] MEDS ORDERED: OPTIRAY 320 IV PRN (19:15)
--- NOTE | 2017-07-27 19:41 | DIAGNOSTIC IMAGING REPORT ---
(CHEST FOR PE) ANGIO WITH CLINICAL HISTORY: 21 years-old Female presenting with ^CHEST PAIN--IF ABLE PLEASE EVALUATE THORACIC AORTA WELL. TECHNIQUE: Multidetector CT angiography of the chest was performed after administration of intravenous contrast. 3-D volumetric and/or maximum intensity projection (MIP) images were subsequently reconstructed for review. IV contrast: Optiray 320. A dose lowering technique was used consistent with the principles of ALARA (as low as reasonably achievable). COMPARISON: Chest x-ray from 2015. CT DOSE (mGy.cm): The estimated cumulative dose is 519.83 mGy.cm. FINDINGS: Direct Care Worker topogram: Unremarkable. Pulmonary vasculature: The study is suboptimal for the assessment of the pulmonary vascular tree secondary to timing of the contrast bolus and respiratory motion artifact. Allowing for limited image quality, no central filling defect to suggest pulmonary embolus. Main pulmonary artery is not enlarged. No flattening of the interventricular septum. No intracardiac filling defect. No reflux of contrast into the hepatic veins. Remaining chest: On soft tissue windows, normal thyroid and thoracic inlet. No axillary, supraclavicular, hilar, or mediastinal lymphadenopathy. Normal aorta. Normal heart size. No pericardial or pleural effusion. Upper abdomen normal. On lung windows, minimal dependent changes likely atelectasis. No other focal nodule or infiltrate. Airways patent. On bone windows, normal osseous structures. IMPRESSION: 1. Allowing for suboptimal image quality, no evidence of pulmonary embolus. No acute intrathoracic pathology. Electronically signed by: Jeancarlos Frank M.D. 07/27/2017 7:40 PM Dictated Date/Time: 07/27/2017 7:36 PM
[2017-07-27] MEDS ORDERED: OSEL75CA12 PO (19:53)
[2017-07-27 20:02] VITALS: BP 121/78; PULSE 82; O2SAT 100
== END 2017-07-27 20:04 | disposition home or self-care (01) ==
LOC: C.EDB 16:48 → C.EDC 20:04
DX: R55 Syncope and collapse (principal); E86.0 Dehydration; R79.1 Abnormal coagulation profile; R53.83 Other fatigue; H53.8 Other visual disturbances

== ENCOUNTER → 2017-09-13 | Outpatient (CLI) | payer BC, OTHER ==
[~2017-09-13] MED LIST changes: -BCPILLS PO; -CALC500C3 PO; -IBUP-1050 PO; +OSEL75CA12 PO
[2017-09-13 12:08] LABS: HEMATOCRIT 33.7 % (37-47); HEMOGLOBIN 11.6 g/dL (12.0-16.0)
== END | disposition home or self-care (01) ==
LOC: C.LAB1850 11:05
PROVIDERS: ATTEND Obstetrics & Gynecology
DX: Z34.03 Encounter for supervision of normal first pregnancy, third trimester (principal)